=== PATIENT | female | born 1995 | race Caucasian/White ===

== ENCOUNTER → 2018-09-05 16:32 | Outpatient (CLI) | payer BC, SELFPAY ==
[2018-09-05 17:15] LABS: Add Manual Diff / Slide Review NO; Basophils Absolute Auto 0 /uL (0-100); Basophils Percent Auto 0.6 % (0-2); Eosinophils Absolute Auto 100 /uL (0-450); Eosinophils Percent Auto 1.8 % (2-4); Hematocrit 38.8 % (36-46); Hemoglobin 12.7 g/dL (12.0-16.0); Lymphocytes Absolute Auto 1800 /uL (1100-4500); Lymphocytes Percent Auto 28.1 % (25-40); Mean Corpuscular HGB Conc 32.9 % (30-36); Mean Corpuscular Volume 85.1 fL (80-100); Monocytes Absolute Auto 500 /uL (0-900); Neutrophils Absolute Auto 3900 /uL (1500-7000); Neutrophils Percent Auto 61.5 % (50-75); Platelet Count 200 X10^3/uL (150-400); Red Blood Cell Count 4.56 X10^6/uL (4.0-5.2); Red Cell Distribution Width 12.7 % (11.6-14.8); White Blood Cell Count 6.3 X10^3/uL (4.5-11.0)
[2018-09-05 17:42] LABS: BUN Creatinine Ratio 16.7 (6-22); Blood Urea Nitrogen 10 mg/dL (7-17); Calcium 9.3 mg/dL (8.4-10.2); Carbon Dioxide 26 mmol/L (22-32); Chloride 104 mmol/L (98-107); Estimated Glomerular Filt Rate > 60.0 mL/min (>60); Glucose 73 mg/dL (70-100); HEMOLYSIS < 15 (0-50); Potassium 4.3 mmol/L (3.4-5.1); Sodium 139 mmol/L (137-145)
== END ==
PROVIDERS: Visit Provider Family Medicine
DX: F32.9 Major depressive disorder, single episode, unspecified (principal)
CPT/HCPCS: 36415; 80048; 85025

== ENCOUNTER → 2018-09-12 14:23 | Outpatient (CLI) | payer BC, SELFPAY ==
--- NOTE | 2018-09-12 | DI.US.S_ITS ---
PROCEDURE: US PELVIC COMPLETE INDICATIONS: PELVIC CRAMPING TECHNIQUE: Real-time scanning was performed of the pelvic organs, with image documentation. Additional endovaginal scanning was necessary due to incomplete visualization of the adnexal and endometrial structures by transabdominal scanning. COMPARISON: [facility], CT, KIDNEY/ URETER/BLADDER, 02/04/2017, 23:00. FINDINGS: Transabdominal scanning: Limited scanning through the kidneys shows no hydronephrosis. No pathologic free abdominal or pelvic fluid. Endovaginal scanning: Uterus: Uterus is normal in size at 3.3 x 5.1 x 7.7 cm. The endometrium measures 5 mm in combined thickness. Centrally positioned IUD in place. Ovaries: The right ovary is enlarged by a complex septated avascular right ovarian cystic structure measuring up to 4.5 x 7.4 x 8.4 cm, with the overall ovarian dimensions therefore measuring up to 5.0 x 8.6 x 8.9 cm. The left ovary measures 2.3 x 2.3 x 4.4 cm. IMPRESSION: Complex right ovarian septated cystic mass measuring up to 8.4 cm in maximal dimension is present, and the left ovary appears normal as does the uterus (with centrally positioned IUD in the endometrial canal). Followup ultrasound assessment of the right ovarian cystic mass is recommended in 6-8 weeks. He This structure was not present on CT study from 02/04/17. Dictated by: Miguel Angel Garvey M.D. on 09/12/2018 at 16:02 Approved by: Miguel Angel Garvey M.D. on 09/12/2018 at 16:05
== END ==
PROVIDERS: PCP Family Medicine; Visit Provider Family Medicine
DX: R10.2 Pelvic and perineal pain (principal); N83.291 Other ovarian cyst, right side; Z97.5 Presence of (intrauterine) contraceptive device
CPT/HCPCS: 76830; 76856

== ENCOUNTER → 2018-09-15 13:52 | Outpatient (CLI) | payer BC, SELFPAY ==
[2018-09-15 15:42] LABS: Add Manual Diff / Slide Review NO; Basophils Absolute Auto 0 /uL (0-100); Basophils Percent Auto 0.4 % (0-2); Eosinophils Absolute Auto 0 /uL (0-450); Eosinophils Percent Auto 0.7 % (2-4); Hemoglobin 12.4 g/dL (12.0-16.0); Lymphocytes Absolute Auto 1300 /uL (1100-4500); Lymphocytes Percent Auto 18.9 % (25-40); Mean Corpuscular HGB Conc 32.7 % (30-36); Mean Corpuscular Hemoglobin 27.9 PG (26-34); Mean Corpuscular Volume 85.5 fL (80-100); Monocytes Absolute Auto 300 /uL (0-900); Monocytes Percent Auto 5.1 % (3-14); Neutrophils Absolute Auto 5000 /uL (1500-7000); Neutrophils Percent Auto 74.9 % (50-75); Platelet Count 234 X10^3/uL (150-400); Red Blood Cell Count 4.44 X10^6/uL (4.0-5.2); Red Cell Distribution Width 13.1 % (11.6-14.8); White Blood Cell Count 6.7 X10^3/uL (4.5-11.0)
[2018-09-15 16:37] LABS: Cancer Antigen 125 6 U/mL (0-35)
== END ==
PROVIDERS: PCP Family Medicine; Visit Provider Specialist
DX: N83.209 Unspecified ovarian cyst, unspecified side (principal); Z01.818 Encounter for other preprocedural examination
CPT/HCPCS: 85025; 86304

== ENCOUNTER 2018-09-19 12:11 | Day surgery (SDC) | payer BC, SELFPAY ==
[2018-09-15 14:15] VITALS: BMI 21.9
[2018-09-19] VITALS (11 sets, daily range): BP systolic 106–129; BP diastolic 55–81; PULSE 60–82; RESP 10–20; TEMP 36.1–37.4; O2SAT 94–100; BMI 20.7
--- NOTE | 2018-09-19 | PATH_ITS ---
[facility] Accession Number: [id number] . 01 Material submitted: . RIGHT OVARIAN CYST . 02 Diagnosis: Right Ovarian Cyst, Excision: Corpus luteum cyst. Negative for neoplasm. MRV/09/21/2018 . 02 Electronically signed: . Romel Olivas MD, PhD, Pathologist NPI- [id number] . 01 Gross description: . Received in formalin, labeled right ovarian cyst, is an opened ovarian cyst (4.7 x 2.5 x 0.6 cm) with spencer-pink, smooth, shiny, flat serosa and a smooth flat lining with no excrescences identified. A scant amount of normal ovarian parenchyma is identified containing corpus luteum. Mechanical Supervisor tissue submitted in cassettes A1 and A2. ([id number]) /MRV . 02 Pathologist provided ICD-10: N83.11 . 02 CPT . 723781 Performed at: 01 [facility] [address] [place] [id number] MD Kirby Porter MD Phone: [phone] Performed at: 02 [facility] [address] [place], [place] [id number] MD Anita Dia MD Phone: [phone]
[2018-09-19] MEDS: LACTATED RINGERS 1,000 ML 42 ML IV ×2 (12:30→15:01)
[2018-09-19] MEDS: LACTATED RINGERS 1,000 ML 100 ML IV (12:38)
--- NOTE | 2018-09-19 13:03 | PM.PREOP ---
Pre-operative Note Interval Note History & Physical reviewed/Exam performed by Physician: Yes Changes to H&P: No H&P completed within 30 days and has changed as indicated here:: see 09/15/18 outpt note
--- NOTE | 2018-09-19 13:14 | SUR.PREOP ---
pt got light headed with iv start , hob down o2 on 2l patient felt much better
--- NOTE | 2018-09-19 13:43 | SUR.OPER ---
Lithotomy on padded OR bed, head on pillow, arms secured on padded arm boards at <90 degrees abduction. Legs secured in padded yellow fins stirrups.
[2018-09-19] MEDS: BUPIVACAINE 0.5% W/ EPI (PF) VIAL 30 ML INJ (13:47)
--- NOTE | 2018-09-19 14:45 | PM.OP.1 ---
Operative Date/Time/Diagnoses Date of procedure: 09/19/18 Time of procedure: 14:45 Pre-op diagnosis: 8 cm right ovarian cyst Post-op diagnosis: same Procedure & Clinicians Procedure: Laparoscopic ovarian cyst removal Same procedure as scheduled: Yes Indications: 8 cm right ovarian cyst Surgeon: Ivy Sparks Click Yes if Unassisted: Yes Anesthesia Type: General Operative Notes Findings: Normal intra-abdominal contents, no scar tissue, no endometriosis, normal appearing appendix and bowel surface, normal uterus and right tube with normal left tube and ovary . Large benign-appearing right ovarian cyst Closure Type: primary Specimen(s): other (Ovarian cyst wall) Estimated Blood Loss (mL): 20 Blood products transfused: none Procedure in detail: Patient was brought to the operating room where she underwent general anesthesia. She was placed in low yellowfin stirrups and prepped and draped in usual sterile fashion. No antibiotics were indicated. Pulsatile stockings were in place and functional. Active warming was in place. The area of the incisions were injected with half percent Marcaine with epinephrine. An incision was made in the umbilicus with a scalpel. The incision was carried down to the fascia layer which was incised transversely and held with 0 Vicryl suture x2. Peritoneum was entered bluntly and the Flores cannula placed in the abdomen and the abdomen insufflated with CO2. A 5 mm trocar was placed under direct visualization in the right and left lower quadrants with no damage to internal structures. An incision was made in the right ovary and careful dissection was done to remove the ovarian cyst. However during dissection the cyst ruptured. The cyst wall was removed intact and sent to pathology. Cautery was used to get adequate hemostasis. The abdomen was irrigated copiously. The CO2 was allowed to escape from the abdomen. The trochars were removed. The fascial layer of the umbilical incision was closed with the prior placed 0 Vicryl suture. Skin was closed with 4-0 Vicryl. The patient went to recovery room in good condition. Complications: none Condition: stable Disposition: same day surgery Plan for aftercare: Home when awake and stable
--- NOTE | 2018-09-19 14:47 | SUR.PHASEI ---
1444 Arousing spontaneously, speech slurred, encouraged to return to sleep. Pt. turned to right side and returned to sleep. Warm blanket previously given.
[2018-09-19] MEDS: ONDANSETRON 4 MG/2 ML INJ IV (14:52)
--- NOTE | 2018-09-19 14:54 | SUR.PHASEI ---
Rx given for c/o nausea. States that pain is no worse than pre-op at 4/10. Dr. Sparks spoke to patient. very drowsy, oriented, speech improved, not yet normal.
[2018-09-19] MEDS: fentaNYL 100 MCG/2 ML INJ 50 MCG IV ×2 (14:57→15:18)
[2018-09-19] MEDS: METOCLOPRAMIDE 10 MG/2 ML INJ IV (15:12)
--- NOTE | 2018-09-19 15:14 | SUR.PHASEI ---
1512 Had previously assessed nausea and patient declined more rx. However, she decided that she wanted Rx -- given. States that she normally has nausea R/T anxiety and that this is at about her normal level. pain 10/19. Has also declined more pain medication.
--- NOTE | 2018-09-19 15:25 | SUR.PHASEI ---
states pain improved, nausea gone. Resp unlabored, skin warm and dry.
--- NOTE | 2018-09-19 15:41 | SUR.PHASEII ---
Family at bedside, HOB elevated, taking ice chips, denies nausea. Ice pack on abdomen.
[2018-09-19] MEDS: OXYCODONE/ACETAMINOPHEN 5/325 TABLET 1 TAB PO (15:50)
--- NOTE | 2018-09-19 16:10 | SUR.PHASEII ---
1610 to car in wheelchair. Feeling discomfort R/T gas/referred pain. Moves carefully w/o moaning, etc. No further nausea, no drainage on pads/dressings. Resp even and regular, skin warm and dry. ice pack home with patient.
== END 2018-09-19 16:10 | disposition home or self-care (01) ==
PROVIDERS: PCP Family Medicine; Visit Provider Specialist
PROC: (CPT 58662; principal; 2018-09-19 13:30)
DX: N83.11 Corpus luteum cyst of right ovary (principal)
CPT/HCPCS: 58662; J1100; J1885; J2405; J2704; J2765; J3010

== ENCOUNTER → 2019-08-18 12:13 | Outpatient (ROUT) | payer BC, SELFPAY ==
[2019-08-18 14:01] LABS: Adenovirus Not Detected (Not Detect); Bordetella pertussis Not Detected (Not Detect); Chlamydophila pneumoniae Not Detected (Not Detect); Coronavirus 229E Not Detected (Not Detect); Coronavirus HKU1 Not Detected (Not Detect); Coronavirus NL 63 Not Detected (Not Detect); Coronavirus OC43 Not Detected (Not Detect); Human Metapneumovirus Not Detected (Not Detect); Human Rhinovirus/Enterovirus Not Detected (Not Detect); Influenza A Not Detected (Not Detect); Influenza B Detected (Not Detect); Mycoplasma pneumoniae Not Detected (Not Detect); Parainfluenza Virus 1 Not Detected (Not Detect); Parainfluenza Virus 2 Not Detected (Not Detect); Parainfluenza Virus 3 Not Detected (Not Detect); Parainfluenza Virus 4 Not Detected (Not Detect); Respiratory Syncytial Virus Not Detected (Not Detect)
== END ==
PROVIDERS: PCP Family Medicine; Visit Provider Family Medicine
DX: R05 Cough (principal); J02.9 Acute pharyngitis, unspecified
CPT/HCPCS: 87633

== ENCOUNTER → 2020-02-23 09:41 | Outpatient (CLI) | payer BC, SELFPAY ==
--- NOTE | 2020-02-23 09:44 | DI.CT.S_ITS ---
PROCEDURE: CT SINUS SCREEN WO CON INDICATIONS: SINUSITIS TECHNIQUE: Noncontrast 3.0 mm axial images acquired from the frontal sinuses to the mid-sella, with coronal and sagittal reformats. For radiation dose reduction, the following was used: automated exposure control, adjustment of mA and/or kV according to patient size. COMPARISON: None. FINDINGS: Image quality: Excellent. Maxillary Sinuses: No bony remodeling or destruction. Sinuses are clear. Ethmoid Air Cells: No bony remodeling or destruction. Sinuses are clear. Sphenoid Sinuses: No bony remodeling or destruction. Sinuses are clear. Frontal Sinuses: No bony remodeling or destruction. Sinuses are clear. Ostiomeatal Complexes: Ostiomeatal complexes are patent. No Raf cells. Miscellaneous: Visualized intra-orbital contents are normal. No charlie bullosa or paradoxical turbinate curvature. No nasal septal deviation. IMPRESSION: No findings of acute or chronic sinusitis. Dictated by: Louie Medina M.D. on 02/23/2020 at 10:10 Approved by: Louie Medina M.D. on 02/23/2020 at 10:12
== END ==
PROVIDERS: PCP Family Medicine; Referring Provider Family Medicine; Visit Provider Family Medicine
DX: J01.91 Acute recurrent sinusitis, unspecified (principal)
CPT/HCPCS: 70486

== ENCOUNTER → 2020-05-30 14:26 | Outpatient (CLI) | payer BC, SELFPAY ==
[2020-05-30 15:28] LABS: Monotest Negative (Negative)
[2020-05-30 15:45] LABS: Alanine Aminotransferase 14 IU/L (<35); Albumin 4.5 g/dL (3.5-5.0); Albumin Globulin Ratio 1.6 (1.0-2.8); Alkaline Phosphatase 49 U/L (38-126); Aspartate Aminotransferase 21 IU/L (14-36); BUN Creatinine Ratio 19.3 (6-22); Bilirubin Total 0.5 mg/dL (0.2-1.3); Blood Urea Nitrogen 11 mg/dL (7-17); Calcium 9.1 mg/dL (8.4-10.2); Carbon Dioxide 29 mmol/L (22-32); Chloride 105 mmol/L (98-107); Estimated Glomerular Filt Rate > 60.0 mL/min (>60); Globulin 2.9 g/dL (1.7-4.1); Glucose 111 mg/dL (70-100); HEMOLYSIS < 15 (0-50); Potassium 3.8 mmol/L (3.4-5.1); Sodium 137 mmol/L (137-145); Total Protein 7.4 g/dL (6.3-8.2)
[2020-05-30 15:46] LABS: C-Reactive Protein Quant < 0.5 mg/dL (<1.0)
[2020-05-30 15:54] LABS: Erythrocyte Sedimentation Rate 4 MM/HR (0-20)
[2020-05-30 15:57] LABS: Add Manual Diff / Slide Review NO; Basophils Absolute Auto 0 /uL (0-100); Basophils Percent Auto 0.7 % (0-2); Eosinophils Absolute Auto 0 /uL (0-450); Eosinophils Percent Auto 0.7 % (2-4); Hematocrit 38.2 % (36-46); Hemoglobin 12.7 g/dL (12.0-16.0); Lymphocytes Absolute Auto 1200 /uL (1100-4500); Lymphocytes Percent Auto 20.1 % (25-40); Mean Corpuscular HGB Conc 33.2 % (30-36); Mean Corpuscular Hemoglobin 28.2 PG (26-34); Mean Corpuscular Volume 85.2 fL (80-100); Monocytes Absolute Auto 400 /uL (0-900); Monocytes Percent Auto 6.4 % (3-14); Neutrophils Absolute Auto 4300 /uL (1500-7000); Neutrophils Percent Auto 72.1 % (50-75); Platelet Count 240 X10^3/uL (150-400); Red Blood Cell Count 4.48 X10^6/uL (4.0-5.2); Red Cell Distribution Width 12.9 % (11.6-14.8)
[2020-05-30 16:27] LABS: HIV 1 & 2 Ab/Ag 4th Gen Combo NEGATIVE (NEGATIVE)
[2020-05-31 04:05] LABS: Immunoglobulin G, Quantitative 977 mg/dL (586-1602)
[2020-05-31 12:08] LABS: EBV EBNA Antibody IgG 18.7 U/mL (0.0-17.9); EBV Virus IgG Ab > 600.0 U/mL (0.0-17.9); EBV Virus IgM Ab < 36.0 U/mL (0.0-35.9)
== END ==
PROVIDERS: PCP Family Medicine; Referring Provider Internal Medicine; Visit Provider Internal Medicine
DX: R59.0 Localized enlarged lymph nodes (principal)
CPT/HCPCS: 36415; 80053; 82784; 85025; 85651; 86140; 86318; 86664; 86665; 87389

== ENCOUNTER → 2020-06-28 08:06 | Outpatient (CLI) | payer BC, SELFPAY ==
--- NOTE | 2020-06-28 | DI.US.S_ITS ---
PROCEDURE: US SOFT TISSUE HEAD AND NECK INDICATIONS: LYMPHADENOPATHY TECHNIQUE: Real-time scanning was performed of the neck region of interest in the left submandibular region, with image documentation. COMPARISON: None. FINDINGS: Lymph node inferior to the left submandibular gland measures 2.9 x 2.7 x 1.2 cm. There is a fatty hilum. The node is hypoechoic. No enlarged lymph nodes in the contralateral right neck. Incidental small thyroid nodules. Left mid measuring 0.7 x 0.5 x 0.4 cm. Nodule is solid hypoechoic smooth and without calcifications. Left inferior measuring 1 x 0.6 x 0.6 cm. Nodule is cystic anechoic smooth and without calcifications. This is consistent with a colloid cyst. IMPRESSION: 1. Enlarged lymph node in the left submandibular neck with a short axis diameter of 1.2 cm. Reactive and malignant etiologies are in the differential diagnosis. -Ultrasound-guided could be performed for tissue diagnosis. 2. No enlarged nodes in the contralateral right neck. 3. Incidental small left thyroid nodules. No required follow-up ultrasound for these nodules. Dictated by: Antwon Shahid M.D. on 06/28/2020 at 8:19 Approved by: Antwon Shahid M.D. on 06/28/2020 at 8:24
== END ==
PROVIDERS: PCP Family Medicine; Referring Provider Family Medicine; Visit Provider Family Medicine
DX: E04.9 Nontoxic goiter, unspecified (principal); R59.0 Localized enlarged lymph nodes
CPT/HCPCS: 76536

== ENCOUNTER → 2020-07-23 13:43 | Outpatient (CLI) | payer BC, SELFPAY ==
--- NOTE | 2020-07-23 | PATH_ITS ---
Note [facility] Accession Number: [id number] TESTS RESULT FLAG UNITS REF RANGE LAB Clinician Provided Cytology Information No. of containers..01 Other (Miscellaneous) No. of containers..00 Previously Prepared Cytology Slide 01 LEFT SUBMANDIBULAR NECK MASS DIAGNOSIS: 01 LEFT SUBMANDIBULAR NECK MASS, FINE NEEDLE ASPIRATION. NEGATIVE FOR MALIGNANT CELLS. FAVOR A BENIGN LYMPH NODE, SEE COMMENT. COMMENT: EXAMINATION OF A THIN PREP AND SMEAR SLIDES REVEALS A MILDLY CELLULAR ASPIRATE COMPOSED OF A HETEROGENEOUS LYMPHOCYTE POPULATION AND FEW LYMPHOHISTIOCYTIC FRAGMENTS, FINDINGS THAT SUGGEST BENIGN LYMPH NODE SAMPLING. LARGE ATYPICAL LYMPHOCYTES OR HODGKIN CELLS WERE NOT SEEN ON THE SUBMITTED SMEARS. IN ADDITION, CONCURRENT FLOW CYTOMETRIC ANALYSIS DID NOT REVEAL AN ABNORMAL B-CELL OR T-CELL POPULATION (SEE COMPLETE FLOW REPORT #[id number] FOR DETAILS). HOWEVER, CLINICAL AND RADIOLOGIC CORRELATION RECOMMENDED TO ENSURE THAT THE LYMPH NODE IS ADEQUATELY SAMPLED. IF SUSPICIOUS FOR MALIGNANCY, RE-ASPIRATION/EXCISIONAL BIOPSY SUGGESTED, CLINICALLY INDICATED. Pathologist ICD10: 01 R22.1 01 LOW RISK OF POSSIBLE LYMPHOMA 01 Geno Orourke MD, Pathologist NPI- [id number] 01 Desiree Stoner, Wellness Ambassador ([facility]) 01 30 CC, YELLOW, CLEAR RECIEVED: IN CYTOLYT WITH 5 ALCOHOL FIXED AND 5 QUICK STAINED SLIDES. /GEN 07/25/2020 0450 Local FLAG LEGEND: L-Low Normal,H-High Normal,LL-Alert Low,HH-Alert High <-Panic Low,>-Panic High,A-Abnormal,AA-Critical Abnormal Performed at: 01 =[facility] [address], [place] [address] Kirby Porter MD, Performed at: 01 [facility] [address], [place], [place] [id number] MD Kirby Porter MD Phone: [phone]
--- NOTE | 2020-07-23 | DI.US.S_ITS ---
PROCEDURE: US FINE NEEDLE ASPIRATION INDICATIONS: Enlarged lymph nodes, unspecified TECHNIQUE: The indications, alternatives, benefits, risks, and complications of the procedure were explained to the patient. Written informed consent was obtained and placed in the chart. The area of interest was examined sonographically and a site was chosen for ultrasound guided percutaneous sampling. The skin was prepared and draped in the usual fashion, and anesthetized with 1% lidocaine infiltrated from the skin down to the lesion. Multiple passes were then performed, with contents emptied into an appropriate pathology specimen container. A bandage was applied to the area of access at completion of the study. COMPARISON: [facility], CT, CT SINUS SCREEN WO CON, 02/23/2020, 9:43. [facility], US, US SOFT TISSUE HEAD AND NECK, 06/28/2020, 8:15. FINDINGS: Location(s) of lesion(s) sampled: Submandibular area on the left. Abernathy: 25 gauge hypodermic needles. Number of passes: 6 Medications: 1% lidocaine for local anaesthesia. Complications: None. IMPRESSION: Successful ultrasound-guided fine needle aspiration, with cytology results pending. The structure that was previously identified and was evaluated by fine-needle aspiration today appears to represent the submandibular gland, and specifically is the area of clinical concern as directed by the patient.. Pathology results pending. Dictated by: Miguel Angel Garvey M.D. on 07/23/2020 at 15:42 Approved by: Miguel Angel Garvey M.D. on 07/23/2020 at 15:48
== END ==
PROVIDERS: PCP Family Medicine; Referring Provider Family Medicine; Visit Provider Specialist
DX: R59.9 Enlarged lymph nodes, unspecified
CPT/HCPCS: 10005

== ENCOUNTER → 2020-11-25 13:33 | Outpatient (CLI) | payer BC, SELFPAY | PROVIDERS: PCP Family Medicine; Visit Provider Student in an Organized Health Care Education/Training Program | DX: N34.3 Urethral syndrome, unspecified (principal) | CPT/HCPCS: 87086 ==

== ENCOUNTER → 2021-02-19 16:54 | Outpatient (CLI) | payer BC, SELFPAY ==
[2021-02-19 18:42] LABS: COVID19 -Nasal RAPID Negative (Negative)
== END ==
PROVIDERS: PCP Family Medicine; Visit Provider Student in an Organized Health Care Education/Training Program
DX: R52 Pain, unspecified (principal); Z20.822 Contact with and (suspected) exposure to COVID-19; J02.9 Acute pharyngitis, unspecified
CPT/HCPCS: 87070; 87635

== ENCOUNTER 2021-03-22 03:10 | Emergency (ER) | payer BC, SELFPAY ==
[2021-03-22 03:21] VITALS: BP 140/89; PULSE 102; RESP 18; TEMP 36.6; O2SAT 100; BMI 21.1
[2021-03-22 03:44] LABS: RBC Urine None Seen (0-5/HPF)
[2021-03-22 03:56] LABS: Bacteria Urine Occasional (0-1); Squamous Epithelial Cell Urine 1-5 /HPF (0-5/HPF); WBC Urine 10-30/HPF (0-5/HPF)
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
[2021-03-22] MEDS: LORazepam 0.5 MG TABLET PO (04:04)
[2021-03-22] MEDS: cephALEXin 250 MG PREPACK 1 BOTTLE MISC (04:57)
[2021-03-22 05:01] VITALS: BP 119/76; PULSE 76; RESP 18; O2SAT 98
== END 2021-03-22 05:02 | disposition home or self-care (01) ==
PROVIDERS: Emergency Provider Emergency Medicine; PCP Family Medicine
DX: F41.9 Anxiety disorder, unspecified (principal); N39.0 Urinary tract infection, site not specified
CPT/HCPCS: 81003; 81015; 81025; 87086; 99283

== ENCOUNTER → 2021-03-28 08:45 | Outpatient (CLI) | payer BC, SELFPAY ==
--- NOTE | 2021-03-28 | DI.US.S_ITS ---
PROCEDURE: US SOFT TISSUE HEAD AND NECK INDICATIONS: FOLLOW UP ENLARGED LYMPHNODES TECHNIQUE: Real-time scanning was performed of the neck region of interest, with image documentation. COMPARISON: [facility], US, US FINE NEEDLE ASPIRATION, 07/23/2020, 14:21. [facility], US, US SOFT TISSUE HEAD AND NECK, 06/28/2020, 8:15. FINDINGS: Palpable hypoechoic structure in the left neck corresponding to the prior fine-needle aspiration is redemonstrated measuring 2.9 x 2.4 x 1.0 cm, previously measuring 2.9 x 2.7 x 1.2 cm on the ultrasound from 07/23/2020. No sonographic abnormality is seen in the right neck. IMPRESSION: Minimally decreased size of a palpable lymph node in the left submandibular region when compared to the ultrasound from 07/23/2020. Dictated by: Harman Woods M.D. on 03/28/2021 at 11:06 Approved by: Harman Woods M.D. on 03/28/2021 at 11:09
== END ==
PROVIDERS: PCP Family Medicine; Referring Provider Family Medicine; Visit Provider Family Medicine
DX: R59.9 Enlarged lymph nodes, unspecified (principal)
CPT/HCPCS: 76536

== ENCOUNTER → 2021-11-08 15:11 | Outpatient (CLI) | payer OTHER, SELFPAY ==
[2021-11-08 16:33] LABS: Influenza A - CEPHEID Flu A NEGATIVE (NEGATIVE); Influenza B - CEPHEID Flu B NEGATIVE (NEGATIVE)
[2021-11-08 16:42] LABS: COVID-19 CEPHEID PCR (VTM/NP) POSITIVE (Negative)
== END ==
PROVIDERS: PCP Family Medicine; Visit Provider Physician Assistant
DX: R50.9 Fever, unspecified (principal)
CPT/HCPCS: 0240U

== ENCOUNTER → 2021-12-09 08:46 | Outpatient (CLI) | payer OTHER, SELFPAY ==
[2021-12-11 21:58] LABS: Gest Age on Col Date 16.3 weeks (.); Insulin Dep Diabetes No (.); OSBR Risk 1IN 160 (.); Results Report (.); Test Results *Screen Positive* (.)
== END ==
PROVIDERS: PCP Family Medicine; Referring Provider Nurse Practitioner Obstetrics & Gynecology; Visit Provider Nurse Practitioner Obstetrics & Gynecology
DX: Z34.02 Encounter for supervision of normal first pregnancy, second trimester (principal); Z36.1 Encounter for antenatal screening for raised alphafetoprotein level
CPT/HCPCS: 36415; 82105

== ENCOUNTER → 2022-02-02 07:09 | Outpatient (CLI) | payer OTHER, SELFPAY ==
[2022-02-02 07:58] LABS: Hematocrit 33.2 % (36-46); Hemoglobin 11.6 g/dL (12.0-16.0); Mean Corpuscular HGB Conc 34.8 % (30-36); Mean Corpuscular Hemoglobin 30.4 PG (26-34); Mean Corpuscular Volume 87.2 fL (80-100); Platelet Count 198 X10^3/uL (150-400); Red Cell Distribution Width 13.2 % (11.6-14.8); White Blood Cell Count 8.7 X10^3/uL (4.5-11.0)
[2022-02-02 08:23] LABS: Glucose Fasting 70 mg/dL (70-100)
[2022-02-02 09:31] LABS: Glucose Tol Interpretation INTERPRETATION
[2022-02-02 09:37] LABS: Glucose 1 Hour 118 mg/dL (70-170)
[2022-02-02 10:34] LABS: Glucose 2 Hour 67 mg/dL (70-140)
== END ==
PROVIDERS: PCP Family Medicine; Referring Provider Nurse Practitioner Obstetrics & Gynecology; Visit Provider Nurse Practitioner Obstetrics & Gynecology
DX: Z34.90 Encounter for supervision of normal pregnancy, unspecified, unspecified trimester (principal); Z13.1 Encounter for screening for diabetes mellitus; Z3A.26 26 weeks gestation of pregnancy
CPT/HCPCS: 36415; 82951; 82952; 85027

== ENCOUNTER 2022-05-28 19:08 | Inpatient (IN) | payer OTHER, SELFPAY ==
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
[2022-05-28 20:29] VITALS: BP 137/64
[2022-05-28 20:29] LABS: Add Manual Diff / Slide Review NO; Basophils Absolute Auto 100 /uL (0-100); Basophils Percent Auto 0.3 % (0-2); Eosinophils Absolute Auto 0 /uL (0-450); Eosinophils Percent Auto 0.3 % (2-4); Hematocrit 35.1 % (36-46); Lymphocytes Absolute Auto 900 /uL (1100-4500); Lymphocytes Percent Auto 5.8 % (25-40); Mean Corpuscular HGB Conc 34.1 % (30-36); Mean Corpuscular Hemoglobin 29.1 PG (26-34); Mean Corpuscular Volume 85.4 fL (80-100); Monocytes Absolute Auto 800 /uL (0-900); Monocytes Percent Auto 4.9 % (3-14); Neutrophils Absolute Auto 14000 /uL (1500-7000); Neutrophils Percent Auto 88.7 % (50-75); Platelet Count 198 X10^3/uL (150-400); Red Blood Cell Count 4.11 X10^6/uL (4.0-5.2); Red Cell Distribution Width 13.2 % (11.6-14.8); White Blood Cell Count 15.8 X10^3/uL (4.5-11.0)
[2022-05-28 20:45] LABS: COVID19 -Nasal RAPID Negative (Negative)
--- NOTE | 2022-05-29 00:10 | PM.OBPNLAB ---
Date/Time Date Patient Seen: 05/29/22 Time Patient Seen: 00:10 Pain Control Pain control: tolerating well Comments: Breathing through strong contractions every 3 minutes. Has primarily been in the tub and on the ball since admission. Now in right side lying position in bed with the peanut ball. Not coping as well, requesting an epidural. Partner, Sloan, and Emmy Jose, offering continuous labor support. VS: BP 127/80, HR 95bpm, ,T 36.1C Temporal Pelvic Exam Dilation (cm): 6 Effacement (%): 90 station: -2 Amniotic membrane status: Intact Contractions Monitor mode: External Pitocin rate (mU/min): 0 Contraction frequency (min): 3 Contraction duration (min): 1 Contraction intensity: Moderate Status Heart Rate Baseline: 140 Comments: FHR Remains reassuring by intermittent auscultation. Assessment and Plan Assessment: active labor Plan: continuous present management Comments: Patient is aware of pain relief options available and will request something when desired. Expectant management of labor. Labor support PRN. Reassess in 4 hours or sooner, PRN.
[2022-05-29] MEDS: LACTATED RINGERS 1,000 ML 100 ML IV ×2 (04:01→11:32)
[2022-05-29] MEDS: FENT 2MCG/ML BUPIV 0.125% EPI 200 MCG/100 ML PLAST..BAG 8 MCG EPIDURAL (04:01)
--- NOTE | 2022-05-29 04:20 | PM.OBPNLAB ---
Date/Time Date Patient Seen: 05/29/22 Time Patient Seen: 04:21 Pain Control Pain control: epidural Comments: Bety labored well with NO2 and now with adequate epidural anesthesia in place. VS: BP 111/60, HR 92bpm, SpO2 97% on RA, T 36.3C Temporal Pelvic Exam Dilation (cm): 7 Effacement (%): 100 station: -2 Amniotic membrane status: Intact Contractions Monitor mode: External Pitocin rate (mU/min): 0 Contraction frequency (min): 3 Contraction duration (min): 1 Contraction intensity: Moderate Status status: Category ll Heart Rate Baseline: 135 Monitor Accelerations: Present Monitor Decelerations: Absent Monitor Variability: Moderate Comments: overall reassuring Assessment and Plan Assessment: active labor Plan: continuous present management Comments: Reassess in 4 hours or sooner, PRN
--- NOTE | 2022-05-29 08:21 | PM.OBPNLAB ---
Date/Time Date Patient Seen: 05/29/22 Time Patient Seen: 08:00 Pain Control Comments: Pt is coping well s/p epidural at 03:30, was able to get some good sleep. Pt is frustrated with how long things are taking, agrees to AROM. VSS: BP: 119/77mmHg, HR: 105bpm, T:36.2C, SpO2: 93% Pelvic Exam Dilation (cm): 8 Effacement (%): 100 station: -1 Amniotic membrane status: Ruptured (AROM) Comments: Verbal consent to AROM. Small clear fluid, bloody show. Contractions Date/Time contractions began: Ctx's began 05/28 at 04:00. Ctx's are now q 3-5.5min, lasting 2 min. Contractions on admission: regular Monitor mode: External Contraction frequency (min): 3 Contraction duration (min): 2 Contraction pattern: Regular Contraction intensity: Moderate Status status: Category ll Heart Rate Baseline: 140 Monitor Accelerations: Present Monitor Decelerations: Late (Rare) and Variable (Rare) Monitor Variability: Moderate Comments: Overall reassuring Assessment and Plan Comments: A: @ 40w5d Active labor with slow progression ROM <1 hr, no signs of infection Rh negative Catgory II heart rate tracing, overall reassuring P: Continuous monitoring Pain: epidural Labor augmentation with AROM at this exam Reassess in 2 hours or PRN - consider IUPC placement if minimal change Provide labor support and position changes
[2022-05-29] MEDS: ONDANSETRON 4 MG/2 ML INJ IV (08:52)
--- NOTE | 2022-05-29 10:45 | PM.OBPNLAB ---
Date/Time Date Patient Seen: 05/29/22 Time Patient Seen: 10:45 Pain Control Pain control: epidural Comments: Has been able to rest comfortably. Is aware of contractions and increasing pressure of baby moving down and coping well with this. VS: BP 121/62, HR 104, T 36.7C Temporal Pelvic Exam Dilation (cm): 8 Effacement (%): 100 station: 0 Amniotic membrane status: Leaking (scan, clear) Contractions Monitor mode: External Pitocin rate (mU/min): 0 Contraction frequency (min): 2 Contraction duration (min): 1 Contraction pattern: Regular Contraction intensity: Moderate Status status: Category ll Heart Rate Baseline: 140 Monitor Accelerations: Present Monitor Decelerations: Early (occasional), Late (rare) and Variable (not recurrent, resolve with position change) Monitor Variability: Moderate Comments: overall reassuring Assessment and Plan Assessment: active labor (slow and augmented with AROM) Plan: continuous present management Comments: Counseled on slow, but steady progress. Recommend IUPC if minimal change at next exam and patient is in agreement with this. Continue frequent position changes with sifting. Reassess in 3 hours or sooner, PRN.
[2022-05-29] MEDS: FENT 2MCG/ML BUPIV 0.125% EPI 200 MCG/100 ML PLAST..BAG 6 MCG EPIDURAL (11:31)
[2022-05-29] MEDS: OXYTOCIN PREMIX 30 UNIT/500 ML PLAST..BAG 200 UNIT IV (14:35)
--- NOTE | 2022-05-29 15:12 | PM.OBPRVD ---
Labor & Delivery Delivery date: 05/29/22 Intrapartal Events: Prolonged Labor > 20 hours Cervical ripening method: none Induction method: AROM Delivery augmentation: rupture of membranes Delivery monitor: external FHT Route of delivery: vacuum extraction (x 1 pull) Indication for instrumentation: maternal exhaustion (PTSD maternal request) L&D Laceration Description: Labial (bilateral labial lacerations, no repair) Quantitative Blood Loss: 500 Anesthesia Type: Epidural Complications: Narrative: This is a 26 year old G1 now P1001 who was admitted for active labor. They progressed slowly with AROM augmentation to the second stage of labor. Meconium stained fluid was noted during the second stage and RT was called to standby for the . Patient pushed for 69min. Maternal exhaustion and poor coping during pushing with patient request for additional support, led to VAVB of a viable male infant, ALEJANDRO with compound right hand over an intact perineum. Vacuum utilized for 1 pull (20 seconds) and OC OBLeighton/ was called to standby. A nuchal cord was not identified and the shoulders delivered without additional maneuvers. scores were 9 and 9. Pitocin initiated for AMTSL. The placenta delivered spontaneously after a prolonged third stage with a 3 vessel cord. Inspection of the placenta revealed a succenturiate lobe. Vaginal and perineal inspection revealed bilateral labial lacerations that did not need repairing. The uterus was firm, QBL 500mL. Cord blood was sent. Bety and baby bonding and nursing following delivery. Baby 1: gender: Male Presentation: vertex Position: Right Occiput Anterior Placenta delivery description: Spontaneous Cord Vessel Description: 3 Vessels score (1 min): 9 score (5 min): 9 weight: 4.12 kg Plan for aftercare: Routine care
[2022-05-29] MEDS: KETOROLAC 30 MG/ML VIAL IV (19:08)
[2022-05-30] MEDS: IBUPROFEN 600 MG TABLET PO ×2 (02:13→08:23)
[2022-05-30] MEDS: ACETAMINOPHEN 325 MG TABLET 650 MG PO ×2 (02:13→08:24)
[2022-05-30] MEDS: DOCUSATE 100 MG CAPSULE PO (08:25)
[2022-05-30] MEDS: LANOLIN OINT 7 GM 1 APPLIC TOP (08:25)
[2022-05-30] MEDS: DERMOPLAST SPRAY 20% 60 ML 1 SPRAY TOP (08:25)
--- NOTE | 2022-05-30 13:44 | PM.OBDS.1 ---
Discharge Providers Provider Date of admission: 05/28/22 19:08 Discharge Date: 05/30/22 Primary care physician: Marybel Haq MD Consults: 05/30/22 15:07 Consult to Preschool Education Director Routine Comment: Discharge provider: Maricel Rodriguez CNM Summary Hospital Course Date Patient Seen: 05/30/22 Time Patient Seen: 13:45 Diagnoses: Vacuum assisted vaginal Hospital Course: PPD1: Stable s/p VAVB with intact perineum. Voiding, ambulating and independently. Tolerating a general diet. Pain is well controlled with PO medication. Tearful and working to process the trauma triggered at the . Bleeding is light without clots. Desires discharge to home today. , Sloan, remains present and supportive. Peripartum Data Delivery Method: Assisted Delivery Laceration Description: None Episiotomy description: None complications: none 1: Gender: Male Disposition of : home Discharge Diagnosis (1) Vacuum-assisted vaginal delivery: Start Date: 05/29/22 Start Time: 14:18 Status: Acute Problem Details: Routine course Status at Discharge Cognitive/behavioral status at discharge: oriented Functional status at discharge: independent ambulation Overall status at discharge: patient is progressing back to baseline Time Spent with Patient Time attestation: Total time spent providing and/or coordinating discharge services: Objective Labs Result Diagrams: 05/28/22 19:50 Exam Vital Signs (past 8 hours): BP 116/69, HR 75bpm, RR 15/min, T 97.9F Temporal Other: Fundus firm @ umbilicus. Lochia scant, no clots. Discharge Plan Discharge Plan Patient Disposition: Home Provider Discharge Comment: debrief and emotional support provided with discharge teaching Nursing Discharge Comment: After ABO/Rh results and Rhogam given if indicated Discharge orders & Medications Prescriptions: New ibuprofen 600 mg Tablet 600 mg PO Q6HR PRN (Reason: Pain, Mild (1-3)) 14 Days Qty: 60 0RF Continued duloxetine [Cymbalta] 30 MG capsule,delayed release(DR/EC) 30 mg PO QDAY Qty: 0 lidocaine 5 % gel See Rx Instructions .ROUTE .COMPLEX Qty: 30 0RF Rx Instructions: Apply topically to the affected area 5 minutes prior to intercourse for dyspareunia Follow up/Referrals: Maricel Rodriguez CNM [[employer]] - (Follow-up by phone 06/11/22 @ 1100 am Follow-up in office 07/10/22 @ 0945 am) Marybel Haq MD [Primary Care Provider] - Diet/Activity/Treatments Diet: Diet as Tolerated and Regular Activity: pelvic rest x 6 weeks Skin/Wound/Dressing Care Report to your healthcare provider any signs of infection, such as:: chills, fever, increased pain, unusual drainage and unusual redness Discharge Data Primary Care Provider: Marybel Haq
[2022-05-30 15:52] VITALS: BP 137/64
== END 2022-05-30 15:25 | disposition home or self-care (01) | DRG 807 ==
PROVIDERS: Admitting Provider Nurse Practitioner Obstetrics & Gynecology; PCP Family Medicine; Referring Provider Nurse Practitioner Obstetrics & Gynecology; Visit Provider Nurse Practitioner Obstetrics & Gynecology
DX: O76 Abnormality in fetal heart rate and rhythm complicating labor and delivery (principal); Z37.0 Single live birth; Z3A.40 40 weeks gestation of pregnancy; O75.81 Maternal exhaustion complicating labor and delivery; O63.0 Prolonged first stage (of labor); O43.193 Other malformation of placenta, third trimester; Z20.822 Contact with and (suspected) exposure to COVID-19
CPT/HCPCS: 36415; 59050; 85025; 86850; 86900; 86901; 87635; C9803; G0379; J1885; J2405; J2590

== ENCOUNTER → 2023-05-02 10:13 | Outpatient (CLI) | payer OTHER, SELFPAY ==
[2023-05-02 12:03] LABS: COVID-19 CEPHEID 4-PLEX PCR Negative (Negative); Influenza A - CEPHEID Flu A NEGATIVE (NEGATIVE); Influenza B - CEPHEID Flu B NEGATIVE (NEGATIVE); Respiratory Syncytial Virus Negative (Negative)
== END ==
PROVIDERS: PCP Family Medicine; Visit Provider Nurse Practitioner Family
DX: J02.9 Acute pharyngitis, unspecified (principal)
CPT/HCPCS: 0241U; 87070

== ENCOUNTER → 2023-09-08 11:45 | Outpatient (ROUT) | payer OTHER, SELFPAY ==
[2023-09-08 12:42] LABS: Influenza A - CEPHEID Flu A NEGATIVE (NEGATIVE); Influenza B - CEPHEID Flu B NEGATIVE (NEGATIVE); Respiratory Syncytial Virus Negative (Negative)
[2023-09-08 13:09] LABS: COVID-19 CEPHEID 4-PLEX PCR Negative (Negative)
== END ==
PROVIDERS: PCP Family Medicine; Visit Provider Internal Medicine
DX: R05.1 Acute cough (principal)
CPT/HCPCS: 0241U

== ENCOUNTER → 2024-06-22 15:01 | Outpatient (CLI) | payer OTHER, SELFPAY ==
[2024-06-22 15:44] LABS: Influenza A - CEPHEID Flu A NEGATIVE (NEGATIVE); Influenza B - CEPHEID Flu B NEGATIVE (NEGATIVE); Respiratory Syncytial Virus POSITIVE (Negative)
[2024-06-22 15:57] LABS: COVID-19 CEPHEID 4-PLEX PCR Negative (Negative)
== END ==
PROVIDERS: PCP Family Medicine; Visit Provider Physician Assistant Surgical
DX: J02.9 Acute pharyngitis, unspecified (principal)
CPT/HCPCS: 0241U

== ENCOUNTER → 2024-08-02 17:14 | Outpatient (CLI) | payer OTHER, SELFPAY ==
[2024-08-02 17:44] LABS: Add Manual Diff / Slide Review NO; Basophils Absolute Auto 0 /uL (0-100); Basophils Percent Auto 0.2 % (0-2); Eosinophils Absolute Auto 100 /uL (0-450); Eosinophils Percent Auto 1.3 % (2-4); Hematocrit 38.7 % (36-46); Hemoglobin 13.1 g/dL (12.0-16.0); Lymphocytes Absolute Auto 1400 /uL (1100-4500); Lymphocytes Percent Auto 20.3 % (25-40); Mean Corpuscular HGB Conc 33.8 % (30-36); Mean Corpuscular Volume 82.8 fL (80-100); Monocytes Absolute Auto 600 /uL (0-900); Monocytes Percent Auto 9.3 % (3-14); Neutrophils Absolute Auto 4700 /uL (1500-7000); Neutrophils Percent Auto 68.9 % (50-75); Platelet Count 234 X10^3/uL (150-400); Red Blood Cell Count 4.67 X10^6/uL (4.0-5.2); White Blood Cell Count 6.8 X10^3/uL (4.5-11.0)
[2024-08-02 18:13] LABS: Alanine Aminotransferase 41 IU/L (<35); Albumin 4.5 g/dL (3.5-5.0); Albumin Globulin Ratio 1.6 (1.0-2.8); Alkaline Phosphatase 45 U/L (38-126); Aspartate Aminotransferase 36 IU/L (14-36); BUN Creatinine Ratio 9.8 (6-22); Bilirubin Total 0.3 mg/dL (0.2-1.3); Blood Urea Nitrogen 6 mg/dL (7-17); C-Reactive Protein Quant 1.1 mg/dL (<1.0); Calcium 8.8 mg/dL (8.4-10.2); Carbon Dioxide 26 mmol/L (22-32); Chloride 105 mmol/L (98-107); Estimated Glomerular Filt Rate > 60 mL/min (>60); Globulin 2.9 g/dL (1.7-4.1); Glucose 80 mg/dL (70-100); HEMOLYSIS < 15 (0-50); Potassium 3.4 mmol/L (3.4-5.1); Sodium 138 mmol/L (137-145); Total Protein 7.4 g/dL (6.3-8.2); Uric Acid 3.2 mg/dL (2.5-6.2)
[2024-08-02 18:27] LABS: Erythrocyte Sedimentation Rate 9 MM/HR (0-20)
== END ==
PROVIDERS: PCP Family Medicine; Referring Provider Family Medicine; Visit Provider Family Medicine
DX: M25.571 Pain in right ankle and joints of right foot (principal)
CPT/HCPCS: 36415; 80053; 84550; 85025; 85651; 86140

== ENCOUNTER → 2024-08-18 15:24 | Outpatient (CLI) | payer OTHER, SELFPAY ==
--- NOTE | 2024-08-18 15:25 | DI.CT.S_ITS ---
PROCEDURE: CT SINUS SCREEN WO CON INDICATIONS: SINUS HEADACHE TECHNIQUE: Noncontrast 3.0 mm axial images acquired from the frontal sinuses to the mid-sella, with coronal and sagittal reformats. For radiation dose reduction, the following was used: automated exposure control, adjustment of mA and/or kV according to patient size. COMPARISON: [facility], CT, CT SINUS SCREEN WO CON, 02/23/2020, 9:43. FINDINGS: Image quality: Excellent. Maxillary Sinuses: No bony remodeling or destruction. Sinuses are clear. Ethmoid Air Cells: No bony remodeling or destruction. Sinuses are clear. Sphenoid Sinuses: No bony remodeling or destruction. Sinuses are clear. Frontal Sinuses: No bony remodeling or destruction. Sinuses are clear. Ostiomeatal Complexes: Ostiomeatal complexes are patent. No Raf cells. Miscellaneous: Visualized intra-orbital contents are normal. There is a right-sided charlie bullosa. There is pimn-sd-fiasviap leftward nasal septal deviation. IMPRESSION: No significant active paranasal sinus disease is seen. Hven-cp-jawuvrvd leftward nasal septal deviation is noted Dictated by: Toni Pearl M.D. on 08/18/2024 at 14:46 Approved by: Toni Pearl M.D. on 08/18/2024 at 14:47
== END ==
PROVIDERS: PCP Family Medicine; Referring Provider Family Medicine; Visit Provider Family Medicine
DX: R51.9 Headache, unspecified (principal); J34.2 Deviated nasal septum; J34.3 Hypertrophy of nasal turbinates
CPT/HCPCS: 70486

== ENCOUNTER 2024-11-22 22:32 | Emergency (ER) | payer OTHER, SELFPAY ==
[2024-11-22 22:47] VITALS: BP 139/76; PULSE 102; RESP 18; TEMP 36.9; O2SAT 100; BMI 22.7
[2024-11-22] MEDS: ONDANSETRON 4 MG/2 ML INJ IV (23:03)
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
[2024-11-22 23:18] LABS: Add Manual Diff / Slide Review NO; Basophils Absolute Auto 0 /uL (0-100); Basophils Percent Auto 0.3 % (0-2); Eosinophils Absolute Auto 200 /uL (0-450); Eosinophils Percent Auto 1.5 % (2-4); Hemoglobin 13.4 g/dL (12.0-16.0); Lymphocytes Absolute Auto 1600 /uL (1100-4500); Mean Corpuscular HGB Conc 34.3 % (30-36); Mean Corpuscular Hemoglobin 28.7 PG (26-34); Mean Corpuscular Volume 83.8 fL (80-100); Monocytes Absolute Auto 600 /uL (0-900); Monocytes Percent Auto 5.7 % (3-14); Neutrophils Absolute Auto 8300 /uL (1500-7000); Neutrophils Percent Auto 77.5 % (50-75); Platelet Count 218 X10^3/uL (150-400); Red Blood Cell Count 4.65 X10^6/uL (4.0-5.2); Red Cell Distribution Width 12.3 % (11.6-14.8); White Blood Cell Count 10.6 X10^3/uL (4.5-11.0)
[2024-11-22 23:23] LABS: Alanine Aminotransferase 18 IU/L (<35); Albumin 4.7 g/dL (3.5-5.0); Albumin Globulin Ratio 1.7 (1.0-2.8); Alkaline Phosphatase 50 U/L (38-126); Aspartate Aminotransferase 23 IU/L (14-36); Bilirubin Total 0.3 mg/dL (0.2-1.3); Blood Urea Nitrogen 13 mg/dL (7-17); Carbon Dioxide 25 mmol/L (22-32); Chloride 105 mmol/L (98-107); Estimated Glomerular Filt Rate > 60 mL/min (>60); Globulin 2.7 g/dL (1.7-4.1); Glucose 112 mg/dL (70-99); HEMOLYSIS < 15 (0-50); Lipase 69 U/L (23-300); Potassium 4.1 mmol/L (3.4-5.1); Sodium 138 mmol/L (137-145); Total Protein 7.4 g/dL (6.3-8.2)
[2024-11-22 23:24] LABS: Magnesium 1.7 mg/dL (1.6-2.3)
[2024-11-22] MEDS: diphenhydrAMINE 50 MG/ML VIAL 25 MG IV (23:31)
[2024-11-22] MEDS: SODIUM CHLORIDE 0.9% 1,000 ML 1000 ML IV (23:31)
[2024-11-22] MEDS: METOCLOPRAMIDE 10 MG/2 ML INJ IV (23:32)
[2024-11-23 00:05] LABS: HCG Quantitative /Beta subunit 42458 mIU/mL
[2024-11-23 00:09] VITALS: PULSE 104; RESP 20
--- NOTE | 2024-11-23 00:26 | DI.US.S_ITS ---
PROCEDURE: US OB <= 14 WEEKS FETUS INDICATIONS: vaginal bleeding OUTSIDE/PRIOR DATING DATA: Last menstrual period (LMP): 10/08/2024. LMP-based estimated date of delivery (LATISHA): 07/15/2025. First dating scan (date and location): 11/23/2024. Estimated date of delivery (LATISHA) from first dating scan: 07/14/2025. TECHNIQUE: Real-time scanning was performed of the fetus and maternal pelvic organs, with image documentation. Endovaginal scanning was also performed to better visualize the fetus and maternal ovaries. COMPARISON: None. FINDINGS: Embryo: Single intrauterine gestational sac is seen with fetus and yolk sac seen. [place]-rump length measures 0.75 cm. Estimated gestational age is 6 weeks, 5 days. Estimated gestational age based on last menstrual period is 6 weeks, 4 days. Heart rate: 122 beats per minute. Maternal organs: Ovaries are visualized and are within normal limits. 2.7 cm corpus luteal cyst is seen in right ovary. IMPRESSION: 1. Single live intrauterine gestation with fetus and yolk sac seen. heart rate is 122 beats per minute. Estimated gestational age based on current study is 6 weeks, 5 days. 2. Corpus luteal cyst in right ovary. No perigestational hemorrhage. We strive to produce accurate, complete, and clear reports of imaging services. To assist us in improving patient care, this report was composed using standard report templates and voice recognition software. Therefore, it may contain abnormal punctuation, insertions and/or omissions. Occasional wrong-word or sound-alike substitutions may occur. Though we review the report and make efforts to correct it, we do recommend that the report be read carefully in proper context to recognize any text inaccuracies. Dictated by: Jesus Tatum M.D. on 11/23/2024 at 1:32 Approved by: Jesus Tatum M.D. on 11/23/2024 at 1:34
--- NOTE | 2024-11-23 00:26 | PC.NURSE ---
Pt ambulatory to restroom without difficulty or assistance. Upon return from restroom pt states she now has noted some vaginal bleeding when she wiped after urination. Dr. Cotton informed and at bedside.
[2024-11-23 01:53] VITALS: BP 123/66; PULSE 98; O2SAT 98
== END 2024-11-23 01:57 | disposition home or self-care (01) ==
PROVIDERS: Emergency Provider Student in an Organized Health Care Education/Training Program; PCP Family Medicine
DX: O21.9 Vomiting of pregnancy, unspecified (principal); Z3A.01 Less than 8 weeks gestation of pregnancy
CPT/HCPCS: 36415; 76801; 76817; 80053; 81003; 81025; 83690; 83735; 84702; 85025; 96361; 96374; 96375; 99284; J1200; J2405; J2765

== ENCOUNTER 2025-04-09 11:28 | Emergency (ER) | payer OTHER, SELFPAY ==
[2025-04-09 11:51] VITALS: BP 111/69; PULSE 94; RESP 18; TEMP 36.6; O2SAT 100; BMI 25.5
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
--- NOTE | 2025-04-09 14:16 | DI.RAD.S_ITS ---
PROCEDURE: XR HAND RT MIN 3V INDICATIONS: cat bite; dorsal hand; also wrist pain TECHNIQUE: 3 views of the right hand acquired. COMPARISON: None. FINDINGS: Bones: No fractures or dislocations. Carpal bones are normally aligned. No suspicious bony lesions. Soft tissues: No suspicious soft tissue calcifications. IMPRESSION: No radiographic evidence of acute abnormality. If symptoms persist or worsen, or there is high clinical suspicion of right hand/wrist abnormality, MRI could be performed. Dictated by: Zev Medina M.D. on 04/09/2025 at 14:55 Approved by: Zev Medina M.D. on 04/09/2025 at 14:57
[2025-04-09 14:35] LABS: Add Manual Diff / Slide Review NO; Hematocrit 34.4 % (36-46); Hemoglobin 11.7 g/dL (12.0-16.0); Lymphocytes Absolute Auto 900 /uL (1100-4500); Mean Corpuscular HGB Conc 34.0 % (30-36); Mean Corpuscular Hemoglobin 29.2 PG (26-34); Mean Corpuscular Volume 85.7 fL (80-100); Platelet Count 227 X10^3/uL (150-400)
[2025-04-09 14:54] LABS: Alanine Aminotransferase 15 IU/L (<35); Albumin 3.9 g/dL (3.5-5.0); Albumin Globulin Ratio 1.3 (1.0-2.8); Alkaline Phosphatase 72 U/L (38-126); Blood Urea Nitrogen 6 mg/dL (7-17); Calcium 9.0 mg/dL (8.4-10.2); Carbon Dioxide 23 mmol/L (22-32); Chloride 104 mmol/L (98-107); Estimated Glomerular Filt Rate > 60 mL/min (>60); Globulin 3.1 g/dL (1.7-4.1); Glucose 102 mg/dL (70-99); HEMOLYSIS < 15 (0-50); Potassium 4.5 mmol/L (3.4-5.1); Sodium 134 mmol/L (137-145); Total Protein 7.0 g/dL (6.3-8.2)
[2025-04-09 15:57] VITALS: BP 119/62; PULSE 72; RESP 16; O2SAT 98
== END 2025-04-09 15:50 | disposition home or self-care (01) ==
PROVIDERS: Emergency Provider Physician Assistant; Family Provider Family Medicine; PCP Family Medicine
DX: O26.892 Other specified pregnancy related conditions, second trimester (principal); L03.113 Cellulitis of right upper limb; S61.451A Open bite of right hand, initial encounter; W55.01XA Bitten by cat, initial encounter; Z3A.26 26 weeks gestation of pregnancy
CPT/HCPCS: 36415; 73130; 80053; 85025; 85651; 86140; 99281; 99284

== ENCOUNTER → 2025-04-11 07:42 | Outpatient (CLI) | payer OTHER, SELFPAY ==
[2025-04-11 08:57] LABS: Hematocrit 34.7 % (36-46); Hemoglobin 11.8 g/dL (12.0-16.0); Mean Corpuscular HGB Conc 34.0 % (30-36); Mean Corpuscular Hemoglobin 29.4 PG (26-34); Mean Corpuscular Volume 86.3 fL (80-100); Platelet Count 205 X10^3/uL (150-400)
[2025-04-11 10:06] LABS: Glucose Tol Interpretation INTERPRETATION
[2025-04-11 10:06] LABS: Glucose 1 Hour 118 mg/dL (70-170)
[2025-04-11 10:55] LABS: Glucose 2 Hour 79 mg/dL (70-140)
== END ==
PROVIDERS: Family Provider Family Medicine; PCP Family Medicine; Referring Provider Nurse Practitioner Obstetrics & Gynecology; Visit Provider Nurse Practitioner Obstetrics & Gynecology
DX: Z13.1 Encounter for screening for diabetes mellitus (principal); Z3A.26 26 weeks gestation of pregnancy
CPT/HCPCS: 36415; 82951; 82952; 85027

== ENCOUNTER 2025-05-28 15:42 | Emergency (ER) | payer OTHER, SELFPAY ==
[2025-05-28 15:48] VITALS: BP 133/64; PULSE 98; RESP 20; TEMP 36.9; O2SAT 98; BMI 27.8
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
[2025-05-28 16:59] LABS: Influenza A - CEPHEID Flu A NEGATIVE (NEGATIVE); Influenza B - CEPHEID Flu B NEGATIVE (NEGATIVE)
[2025-05-28 17:01] LABS: COVID-19 CEPHEID 4-PLEX PCR Negative (Negative)
[2025-05-28 17:56] VITALS: BP 130/67; PULSE 78; RESP 18; TEMP 37.1; O2SAT 98
== END 2025-05-28 17:58 | disposition home or self-care (01) ==
PROVIDERS: Emergency Provider Emergency Medicine; Family Provider Family Medicine; PCP Family Medicine
DX: O98.513 Other viral diseases complicating pregnancy, third trimester (principal); Z3A.33 33 weeks gestation of pregnancy
CPT/HCPCS: 87637; 99281; 99282